=== PATIENT | female | born 1985 | race Asian ===

== ENCOUNTER 2018-05-11 01:33 | Inpatient (IN) | payer BC ==
[2018-05-11 02:26] VITALS: BMI 30.3
[2018-05-11] MEDS ORDERED: Acetaminophen 500 MG TAB PO PRN (03:13)
[2018-05-11] MEDS ORDERED: Butorphanol Tartrate 1 MG/ML VIAL SLOW IVP PRN (03:13)
[2018-05-11] MEDS ORDERED: Lactated Ringer's 1,000 ML IV PRN (03:13)
[2018-05-11] MEDS ORDERED: Ondansetron HCl/PF 4 MG/2 ML Vial IVP PRN ×2 (03:13→05:04)
[2018-05-11] MEDS ORDERED: Promethazine HCl 25 MG/ML VIAL IM PRN ×2 (03:13→05:04)
[2018-05-11 03:19] LABS: Hemoglobin 13.1 g/dL (12.0-16.0); Mean Corpuscular HGB CONC 34.2 g/dL (32.0-36.0); Mean Corpuscular Hemoglobin 32.4 pg (27.0-31.0); Mean Corpuscular Volume 94.7 fL (78.0-98.0); Mean Platelet Volume 8.2 fL (7.4-10.4); Platelet Count 174 thou/uL (130-400); RBC Distribution Width 11.8 % (11.5-14.5); Red Blood Cell (RBC) Count 4.04 mill/uL (4.20-5.40); White Blood Cell (WBC) Count 7.5 thou/uL (4.8-10.8)
[2018-05-11] MEDS: Lactated Ringer's 1,000 ML IV SCH ×4 (03:20→11:19)
[2018-05-11] MEDS ORDERED: DISCONTINUE ALL PREVIOUS NARCOTICS FS SCH (03:30)
[2018-05-11 03:53] LABS: HBSAg Index 0.23 S/CO (0-0.99); Hep B Surf Ag Non-Reactive S/CO (NonReactive)
[2018-05-11] MEDS: Bupivacaine 0.5% 20 ML, fentaNYL Citrate/PF 400 MCG in Sodium Chloride 0.9% 72 ML EPIDURAL SCH ×2 (04:20→12:19)
[2018-05-11] MEDS ORDERED: diphenhydrAMINE 50 MG/ML VIAL IVP PRN (05:04)
[2018-05-11] MEDS ORDERED: Eucerin (Mineral Oil/Petrolatum,White) 30 gm Jar TOP PRN (05:04)
[2018-05-11] MEDS ORDERED: Acetaminophen 325 MG TAB PO PRN (05:04)
[2018-05-11] MEDS ORDERED: ePHEDrine/0.9% NaCl/PF SYRINGE 50 mg/10 ml SLOW IVP PRN (05:04)
[2018-05-11] MEDS ORDERED: Naloxone HCl 0.4 mg/ml Vial IVP PRN ×2 (05:04)
[2018-05-11] MEDS ORDERED: Lactated Ringer's 500 ML IV PRN (05:04)
[2018-05-11] MEDS ORDERED: fentaNYL Citrate/PF 400 MCG, Bupivacaine 0.5% 20 ML in Sodium Chloride 0.9% 72 ML EPIDURAL SCH (05:15)
[2018-05-11] MEDS ORDERED: Communication Order-Pharmacy FS SCH (05:15)
[2018-05-11 05:27] LABS: Syphilis Antibody Nonreactive (Nonreactive); Syphilis Antibody Index 0.04 S/CO (<1.00 Non-Reactive)
[2018-05-11] MEDS ORDERED: Oxytocin 10 UNITS/ML VIAL ONE (07:27)
[2018-05-11] MEDS ORDERED: NS w/ Oxytocin 10 units 500 ML ONE (07:28)
[2018-05-11] MEDS ORDERED: Lidocaine 2% MPF 10 ML AMP (For Epidural Use) ONE (09:00)
[2018-05-11] MEDS ORDERED: Lidocaine HCl/Epinephrine 5 ML AMPUL IJ ONE ×4 (09:45→14:50)
[2018-05-11] MEDS ORDERED: NS w/ Oxytocin 10 units 500 ML IVPB SCH (10:00)
[2018-05-11] MEDS ORDERED: NS / Oxytocin 40 units/1000ml 1,000 ML ONE (11:31)
[2018-05-11] MEDS ORDERED: Lidocaine 1% (PF) 30 ML VIAL ONE ×2 (13:05→16:53)
[2018-05-11 17:29] LABS: Actual Bicarbonate (HCO3v) 20 mEq/L (22-28); Analyzer IN Cardio OR; Base Excess -6.4 mEq/L (-2.0 to +3.0); pH (Cord, venous) 7.28 (7.32-7.43)
[2018-05-11] MEDS ORDERED: Bisacodyl 10 MG SUPP PR PRN (17:36)
[2018-05-11] MEDS ORDERED: diphenhydrAMINE 25 MG CAP PO PRN (17:36)
[2018-05-11] MEDS ORDERED: Adacel (T-DAP) 0.5 ML VIAL IM ONE (17:36)
[2018-05-11] MEDS ORDERED: Milk Of Magnesia 30 ML UDCUP PO PRN (17:36)
[2018-05-11] MEDS ORDERED: HYDROcodone/Acetaminophen 5/325 mg Tablet PO PRN (17:36)
[2018-05-11] MEDS ORDERED: Lanolin Ointment 7 GM TUBE TOP PRN (17:36)
[2018-05-11] MEDS ORDERED: Zolpidem Tartrate 5 MG TAB PO PRN (17:36)
[2018-05-11] MEDS ORDERED: Benzocaine/Menthol 20-0.5% 60 ML CAN TOP PRN (17:36)
[2018-05-11] MEDS: NS / Oxytocin 40 units/1000ml 1,000 ML IV SCH ×2 (19:35→19:46)
[2018-05-11] MEDS: Docusate Calcium (SURFAK) 240 MG CAP PO SCH (23:15)
[2018-05-11] MEDS: Ibuprofen 800 MG TAB PO SCH (23:15)
[2018-05-12] MEDS: Ibuprofen 800 MG TAB PO SCH ×3 (05:47→21:07)
[2018-05-12] MEDS: Ferrous Sulfate 325 MG TAB PO SCH (19:07)
[2018-05-12] MEDS: Docusate Calcium (SURFAK) 240 MG CAP PO SCH ×2 (19:09→21:08)
[2018-05-12] MEDS: Prenatal Vitamin 1 TAB PO SCH (19:09)
[2018-05-12] MEDS: Lactated Ringer's 1,000 ML IV SCH (19:09)
[2018-05-13] MEDS: Lactated Ringer's 1,000 ML IV SCH ×2 (06:31→07:12)
[2018-05-13] MEDS: Ibuprofen 800 MG TAB PO SCH ×2 (06:32→13:34)
[2018-05-13] MEDS: Ferrous Sulfate 325 MG TAB PO SCH (07:12)
[2018-05-13 08:05] VITALS: BP 106/59; TEMP 98
[2018-05-13] MEDS: Docusate Calcium (SURFAK) 240 MG CAP PO SCH (08:19)
[2018-05-13] MEDS: Prenatal Vitamin 1 TAB PO SCH (08:19)
== END 2018-05-13 16:59 | disposition home or self-care (01) | DRG 775 ==
LOC: L&D/OP 01:33 → L&D 02:42 → 3SE 20:21
PROVIDERS: ADMIT Obstetrics & Gynecology; ATTEND Obstetrics & Gynecology
PROC: 10E0XZZ Delivery of Products of Conception, External Approach (ICD-10-PCS; principal; 2018-05-13)
PROC: 0KQM0ZZ Repair Perineum Muscle, Open Approach (ICD-10-PCS; 2018-05-13)
DX: O77.0 Labor and delivery complicated by meconium in amniotic fluid (principal); Z37.0 Single live birth; Z3A.39 39 weeks gestation of pregnancy; O76 Abnormality in fetal heart rate and rhythm complicating labor and delivery; O70.1 Second degree perineal laceration during delivery
CPT/HCPCS: 51702; 82805; 85027; 86780; 86850; 86900; 86901; 87340; 90715; 99285; A4216; J2001; J2405; J2590; J3010; J3490; J7050